=== PATIENT | female | born 1955 | race African-American/Black ===

== ENCOUNTER 2016-08-31 16:18 | Emergency (ER) | payer SELFPAY ==
[~2016-08-31] VITALS: Ht 167.6 cm; Wt 115.0 kg
[~2016-08-31 16:18] MED LIST: 1-ME1LIQ PO; GUAI100S6 PO; IBUP800T23 PO; LEVA750T9 PO; PRIL10CA PO
[2016-08-31 16:20] VITALS: BP 211/117; PULSE 86; RESP 20; TEMP 97.9; O2SAT 97
[2016-08-31] MEDS ORDERED: PRIL10CA PO (17:17)
--- NOTE | 2016-08-31 18:04 | PD ---
HPI Chief Complaint: Injury Time Seen by Provider: 18:00 Travel History International Travel<30 days: No Contact w/Intl Traveler<30days: No Traveled to known affect area: No History of Present Illness HPI Patient comes in complaining of left second toe pain that he began after tripping prior to coming to the emergency department. Patient states she cleaned it with peroxide as well as took Tylenol with minimal relief of her symptoms. Pain is throbbing burning like in nature at the distal aspect of the toe. Pain radiates proximally and is worse with palpation. Patient reports her last tetanus shot was 3 years ago. Patient reports she is out of her blood pressure medicine for about a week and has follow-up appointment this upcoming Friday for refill and denies any symptoms at this time. Patient reports her blood pressure medicines amlodipine 10 mg by mouth daily. PFSH Past Medical History Arthritis: Yes Asthma: Yes Autoimmune Disease: No Blood Disorders: No Anxiety: No Depression: Yes Heart Rhythm Problems: No Cancer: No Cardiovascular Problems: Yes High Cholesterol: No Chemotherapy: No Chest Pain: Yes Congestive Heart Failure: Yes COPD: Yes Cerebrovascular Accident: Yes (TIA) Diabetes: No Diminished Hearing: No Endocrine: No Gastrointestinal Disorders: Yes GERD: Yes Genitourinary: No Headaches: No Hepatitis: No Hiatal Hernia: Yes Hypertension: Yes Immune Disorder: No Musculoskeletal: Yes Neurologic: Yes Psychiatric: Yes Reproductive: No Respiratory: Yes (BRONCHITIS) Immunizations Current: Yes Migraines: No Myocardial Infarction: No Radiation Therapy: No Seizures: No Sleep Apnea: No Ulcer: Yes (GASTRIC) Tetanus Vaccination: < 5 Years Menopausal: Yes Past Surgical History Abdominal Surgery: No AICD: No Appendectomy: Yes Arteriovenous Shunt: No Cardiac Surgery: No Cholecystectomy: No Ear Surgery: No Endocrine Surgery: No Eye Surgery: No Genitourinary Surgery: No Gynecologic Surgery: No Insulin Pump: No Joint Replacement: No Neurologic Surgery: Yes Oral Surgery: No Pacemaker: No Thoracic Surgery: No Other Surgery: Yes Social History Alcohol Use: No Tobacco Use: Yes Substance Use: Yes (cocaine-2008) Allergies-Medications (Allergen,Severity, Reaction): Coded Allergies: Penicillin (Verified Allergy, Severe, Rash, 08/31/16) Reported Meds & Prescriptions Reported Meds & Active Scripts Active Amlodipine (Amlodipine Besylate) 10 Mg Tab 10 Mg PO DAILY Reported Prilosec (Omeprazole) 10 Mg Cap 10 Mg PO DAILY Review of Systems Except as stated in HPI: all other systems reviewed are Neg Physical Exam Narrative GENERAL: Well-developed, overly nourished, in no acute distress, and non-ill appearing. SKIN: Warm and dry. HEAD: Atraumatic. Normocephalic. EYES: Pupils equal and round. EOMI. No scleral icterus. No injection or drainage. ENT: No nasal bleeding or discharge. Mucous membranes pink and moist. NECK: Trachea midline. Supple. No nuclear rigidity. CARDIOVASCULAR: Capillary refill less than 2 seconds. No pedal edema. RESPIRATORY: No accessory muscle use. No respiratory distress. MUSCULOSKELETAL: No obvious deformities. No clubbing. No cyanosis. No edema. Full range of motion. Patient reports that his palpation distal aspect of the left second toe is worse to palpation. Onychomycosis noted. NEUROLOGICAL: Awake and alert. No obvious cranial nerve deficits. Motor grossly within normal limits. Normal speech. PSYCHIATRIC: Appropriate mood and affect; insight and judgment normal. Data Data Last Documented VS Vital Signs Date Time Temp Pulse Resp B/P Pulse Ox O2 Delivery O2 Flow Rate FiO2 08/31/16 18:33 232/104 08/31/16 16:20 97.9 86 20 97 Room Air Orders Toe (Min 2vws) (08/31/16 ) Bupivacaine Pf 0.5% Inj (Marcaine Pf 0.5 (08/31/16 18:15) Splint Or Brace Apply/Monitor (08/31/16 18:52) [facility] Medical Decision Making Medical Screen Exam Complete: Yes Emergency Medical Condition: Yes Differential Diagnosis Fracture, sprain, contusion, other Narrative Course There is no clinical evidence to suspect bony injury by exam. Radiographic examination revealed no fracture seen at this time. The patient has full range of motion on active and passive motions. There is no significant edema. There is no joint effusion. The distal extremity appears neurovascularly intact, without evidence of neurovascular injury nor compartment syndrome. Tendon exam also was intact. The patient was discharged and given warnings for vascular compromise. The patient is to follow up with their regular physician. The patient agrees with plan. The patient has a prior history of hypertension and admits to noncompliance with their antihypertensive medications. The patient has no symptoms as well. The patient denied headache, changes in vision, nausea, vomiting, dizziness, weakness or loss of sensation. The patient denied and chest, back or abdominal pain. The patient also denied any shortness of breath, dyspnea on exertion, orthopnea or PND. The patient denies any edema to extremities. The patients blood pressures at discharge were at an acceptable level. I discussed with the patient the importance of continuing daily antihypertensive and to not skip doses or stop medications suddenly without instruction by their primary care physician. The patient was instructed to follow up and potential adjustment of blood pressure medications. Return warnings were given to the patient and the patient agreed with plan of care. Patient in no obvious distress upon re-evaluation. All pertinent Radiology result(s) discussed with patient. Patient was asked if they wanted to speak to my attending, which the patient did not wish to do at this time. Any questions/ concerns in reference to patient diagnosis/condition discussed and clarified prior to patient's discharge. Reinforced sheer importance of close follow up with patient's primary physician or primary care clinic. Instructed patient to return to ED immediately, if symptoms return/worsen. Pt showed understanding of above instructions. Further instructions and recommendations were detailed in discharge paperwork. Pt ambulated without difficulty out of ED at discharge. Diagnosis Primary Impression: Sprain of toe, second, left Qualified Code: S93.505A - Sprain of toe, second, left, initial encounter Additional Impression: Hypertension Qualified Code: I10 - Essential hypertension Referrals: [facility] Patient Instructions: Contusion in Adults (DC), Foot Sprain (ED), General Instructions, Hypertension (ED) Additional Instructions: Follow-up with your primary care physician in 2-3 days for reevaluation and possible adjustment your blood pressure medicine. Follow-up with mobile electronics installer this week for reevaluation of your toe pain. Take all medication as prescribed. Return to the emergency department if symptoms get worse. Med/Other Pt SpecificInfo: Prescription(s) given Scripts Amlodipine 10 Mg Tab10 Mg PO DAILY #7 TAB Ref 0 Prov:Eri Bustamante 08/31/16 Disposition: 01 DISCHARGE HOME Condition: Stable Alex Astorga Aug 31, 2016 18:04
[2016-08-31] MEDS ORDERED: BUPIVACAINE HCL PF 0.5% 10 ML VIAL INFIL ONE (18:15)
[2016-08-31 18:33] VITALS: BP 232/104
[2016-08-31] MEDS ORDERED: AMLO10TA2 PO (18:54)
--- NOTE | 2016-08-31 19:03 | RADRPT ---
EXAM DATE/TIME: 08/31/2016 18:29 [facility] COMPARISON: No previous studies available for comparison. INDICATIONS : Left foot second digit pain MEDICAL HISTORY : None. SURGICAL HISTORY : None. ENCOUNTER: Initial ACUITY: 1 day PAIN SCORE: 10/10 LOCATION: Left foot FINDINGS: Examination of the second digit of the left foot demonstrates no evidence of fracture or dislocation. No radiopaque foreign bodies are seen. The soft tissues are intact. CONCLUSION: Unremarkable examination of the left second toe. Manuel Colvin MD on August 31, 2016 at 19:01 Board Certified Radiologist. This report was verified electronically.
== END 2016-08-31 19:14 | disposition home or self-care (01) ==
LOC: NEPB 16:18
DX: S93.505A Unspecified sprain of left lesser toe(s), initial encounter (principal); I10 Essential (primary) hypertension; Z91.14 Patient's other noncompliance with medication regimen; Z72.0 Tobacco use; Z86.79 Personal history of other diseases of the circulatory system; Z87.09 Personal history of other diseases of the respiratory system; Z86.73 Personal history of transient ischemic attack (TIA), and cerebral infarction without residual deficits; Z87.19 Personal history of other diseases of the digestive system; Z87.39 Personal history of other diseases of the musculoskeletal system and connective tissue; Z86.69 Personal history of other diseases of the nervous system and sense organs; Z86.59 Personal history of other mental and behavioral disorders; W18.40XA Slipping, tripping and stumbling without falling, unspecified, initial encounter
CPT/HCPCS: 73660; 99283